=== PATIENT | female | born 1985 | race African-American/Black ===

== ENCOUNTER 2024-12-15 09:35 | Emergency (ER) | payer BC ==
[~2024-12-15] VITALS: Ht 167.6 cm; Wt 69.0 kg
[2024-12-15 09:37] VITALS: O2SAT 97
[2024-12-15] MEDS: ONDANSETRON HCL 4MG/2ML INJ IV ONE (10:19)
[2024-12-15] MEDS: FAMOTIDINE 20MG/2ML VIAL IV ONE (10:19)
[2024-12-15] MEDS: SODIUM CHLORIDE 0.9% 1,000 ML IV ONE (10:19)
[2024-12-15] MEDS: DICYCLOMINE HCL 10MG/ML 2ML VIAL IM STA (10:19)
[2024-12-15 10:23] LABS: CLARITY URINE CLEAR (CLEAR); COLOR URINE YELLOW (YELLOW); GLUCOSE URINE NEGATIVE (NEGATIVE); KETONES URINE 4+ (NEGATIVE); LEUKOCYTE ESTERASE URINE 1+ (NEGATIVE); NITRITE URINE NEGATIVE (NEGATIVE); OCCULT BLOOD URINE 2+ (NEGATIVE); PROTEIN URINE 1+ (NEGATIVE); SPECIFIC GRAVITY URINE 1.024 (1.005-1.030); UROBILINOGEN URINE 0.2 E.U./dL (0.2-1.0)
[2024-12-15 10:51] LABS: MUCUS URINE 1+ /lpf (< = 2+); SQUAMOUS EPITHELIAL CELL URINE 2+ /lpf (RARE/1+)
[2024-12-15 10:54] LABS: BACTERIA URINE 1+
[2024-12-15 11:01] LABS: BASOPHILS % 0.3 % (0.0-2.0); EOSINOPHILS % 0.3 % (0.0-5.0); HEMATOCRIT. 42.4 % (36.0-48.0); HEMOGLOBIN. 14.2 g/dL (12.0-16.0); LYMPHOCYTES % 20.5 % (20.0-50.0); MEAN CORPUSCULAR HEMOGLOBIN 31.1 pg (28.0-32.0); MEAN CORPUSCULAR HGB CONC 33.6 g/dL (31.0-37.0); MEAN CORPUSCULAR VOLUME 92.6 fL (81.0-99.0); MEAN PLATELET VOLUME 8.5 fl (7.4-10.4); MONOCYTES % 6.2 % (2.0-8.0); NEUTROPHILS % 72.7 % (40.0-76.0); PLATELET 290 x1000/uL (130-400); RED BLOOD CELL COUNT 4.58 mill/uL (4.2-5.4); WHITE BLOOD COUNT 13.5 x1000/uL (4.5-11.0)
[2024-12-15 11:08] LABS: CARBON DIOXIDE 20 mEq/L (21-32); CHLORIDE 109 mEq/L (98-107); POTASSIUM 3.5 mEq/L (3.5-5.1); SODIUM 138 mEq/L (136-145)
[2024-12-15 11:13] LABS: CREATININE 1.2 mg/dL (0.6-1.0)
[2024-12-15 11:14] LABS: ETHANOL BLOOD < 10 mg/dL (<10); GLUCOSE 104 mg/dL (70-105); UREA NITROGEN BLOOD 14 mg/dL (9-23)
[2024-12-15 11:15] LABS: ALANINE AMINOTRANSFERASE 23 IU/L (10-49); ALBUMIN 5.1 g/dL (3.2-4.8); ASPARTATE AMINOTRANSFERASE 27 IU/L (<34)
[2024-12-15 11:16] LABS: BILIRUBIN DIRECT 0.1 mg/dL (<=3.0); BILIRUBIN TOTAL 0.4 mg/dL (0.1-1.0); PROTEIN TOTAL 8.5 g/dL (6.0-8.3)
[2024-12-15 11:19] LABS: HCG SCREEN NEGATIVE
[2024-12-15] MEDS ORDERED: NITR-87 MT (12:34)
[2024-12-15] MEDS ORDERED: TAMS-54 MT (12:34)
[2024-12-15] MEDS ORDERED: IBUP-2030 MT (12:34)
[2024-12-15 13:17] VITALS: BP 101/56; PULSE 55; RESP 16; TEMP 36.4; O2SAT 100
== END 2024-12-15 13:36 | disposition home or self-care (01) ==
LOC: ER 09:35
DX: R10.84 Generalized abdominal pain (principal); Z79.899 Other long term (current) drug therapy
CPT/HCPCS: 80076; 80048; 81003; 80320; 84703; 83690; 85025; 36415; 74176; 96361; 96372; 96374; 96375; 99285; J0500; J3490; J2405; J7030; G0480